=== PATIENT | male | born 1945 | race African-American/Black ===

== ENCOUNTER 2020-06-11 12:38 | Emergency (ER) | payer OTHER ==
[~2020-06-11] VITALS: Ht 175.3 cm; Wt 95.0 kg
[~2020-06-11 12:38] MED LIST: AMLO10TA80 PO; AMOX-424 MT; ASPI-1406 PO; BICA50TA7 PO; CLOP75TA15 PO; CLOP75TA33 PO; DILT30TA38 PO; DULO30CA52 PO; LANTUSUD SUBCUT; LISI20TA31 PO; LOSA50TA3 PO; METF-416 MT; NITR0.4T49 SL; PROT40 MT
[2020-06-11 12:49] VITALS: BP 106/46
[2020-06-11 13:52] LABS: HEMATOCRIT. 24.2 % (42.0-52.0); HEMOGLOBIN. 7.8 g/dL (14.0-18.0); MEAN CORPUSCULAR HEMOGLOBIN 26.4 pg (28.0-32.0); MEAN CORPUSCULAR VOLUME 81.4 fL (80.0-94.0); MEAN PLATELET VOLUME 7.6 fl (7.4-10.4); PLATELET 250 x1000/uL (130-400); RED BLOOD CELL COUNT 2.97 mill/uL (4.7-6.1); RED CELL DISTRIBUTION WIDTH 19.6 % (11.6-14.6)
[2020-06-11 13:59] LABS: CHLORIDE 106 mEq/L (98-107)
[2020-06-11 14:02] LABS: INR 1.1
[2020-06-11 14:11] LABS: PLATELET ESTIMATE NORMAL
[2020-06-11 15:16] LABS: CLARITY URINE CLOUDY (CLEAR); KETONES URINE TRACE (NEGATIVE); LEUKOCYTE ESTERASE URINE 3+ (NEGATIVE); NITRITE URINE NEGATIVE (NEGATIVE); OCCULT BLOOD URINE 3+ (NEGATIVE); PROTEIN URINE 2+ (NEGATIVE); SPECIFIC GRAVITY URINE 1.023 (1.005-1.030)
[2020-06-11 15:18] LABS: COLOR URINE BLOODY (YELLOW)
== END 2020-06-11 15:57 | disposition home or self-care (01) ==
LOC: ER 12:38
DX: R31.9 Hematuria, unspecified (principal); C61 Malignant neoplasm of prostate; C79.9 Secondary malignant neoplasm of unspecified site; J44.9 Chronic obstructive pulmonary disease, unspecified; E11.9 Type 2 diabetes mellitus without complications; I10 Essential (primary) hypertension; Z79.4 Long term (current) use of insulin; Z88.2 Allergy status to sulfonamides; Z88.3 Allergy status to other anti-infective agents; Z95.0 Presence of cardiac pacemaker; Z79.82 Long term (current) use of aspirin; Z98.890 Other specified postprocedural states
CPT/HCPCS: 36415; 80053; 81003; 85025; 87077; 87186; 99283